=== PATIENT | male | born 1965 | race Caucasian/White ===

== ENCOUNTER 2022-09-29 07:43 | Day surgery (SDC) | payer OTHER ==
[~2022-09-29] VITALS: Ht 165.1 cm; Wt 81.2 kg
[2022-09-29] MEDS ORDERED: DEXT 5%/0.45% NACL 500ML 500 ML IV ONE (08:45)
[2022-09-29] MEDS ORDERED: BUPIVACAINE HCL 300 MG IMPLANT(XARACOLL) IL NR (09:00)
[2022-09-29] MEDS ORDERED: SODIUM CHLORIDE 0.9% 1,000 ML IV SCH (09:00)
[2022-09-29] MEDS ORDERED: BUPIVACAINE HCL/PF 0.5% (5MG/ML) 10ML ONE (09:26)
[2022-09-29] MEDS ORDERED: SKIN ADHESIVE 0.7 GM EA TOP ONE (09:26)
[2022-09-29] MEDS ORDERED: FENTANYL CITRATE/PF 50MCG/ML 2ML VIAL ONE (09:38)
[2022-09-29] MEDS ORDERED: LIDOCAINE HCL 1% 10 MG/ML 10ML VIAL ONE (09:38)
[2022-09-29] MEDS ORDERED: PROPOFOL 200MG/20ML VIAL IV ONE (09:38)
[2022-09-29] MEDS ORDERED: MIDAZOLAM HCL 2 MG/2 ML VIAL ONE (09:39)
[2022-09-29] MEDS ORDERED: SIMV-43 PO (10:49)
[2022-09-29] MEDS ORDERED: METF-416 PO (10:49)
[2022-09-29] MEDS ORDERED: GLIP10TA10 PO (10:49)
[2022-09-29] MEDS ORDERED: INSU100I24 SQ (10:49)
[2022-09-29] MEDS ORDERED: LOSA50TA41 PO (10:49)
[2022-09-29] MEDS ORDERED: HYDROMORPHONE HCL/PF 2MG/ML CPJ IV PRN (11:45)
[2022-09-29] MEDS ORDERED: LABETALOL 5MG/ML SYR 20 MG/4 ML SYRINGE IV PRN (11:45)
[2022-09-29] MEDS ORDERED: ONDANSETRON HCL 4MG/2ML INJ IV PRN (11:45)
[2022-09-29] MEDS ORDERED: MEPERIDINE HCL/PF 25MG/ML CPJ IV PRN (11:45)
[2022-09-29] MEDS ORDERED: INSULIN REGULAR (HUMULIN R) 300UNITS/3ML VIAL SUBCUT NR (14:29)
[2022-09-29] MEDS ORDERED: HYDROCODONE/ACETAMINOPHEN 5/325MG TABLET PO PRN (14:30)
[2022-09-29 14:52] VITALS: BP 125/74
== END 2022-09-29 15:45 | disposition home or self-care (01) ==
LOC: OR 07:43
PROVIDERS: ATTEND Surgery
DX: K40.90 Unilateral inguinal hernia, without obstruction or gangrene, not specified as recurrent (principal); E11.9 Type 2 diabetes mellitus without complications; I10 Essential (primary) hypertension; E78.00 Pure hypercholesterolemia, unspecified; Z79.84 Long term (current) use of oral hypoglycemic drugs; Z79.899 Other long term (current) drug therapy; Z98.890 Other specified postprocedural states; Z20.822 Contact with and (suspected) exposure to COVID-19
CPT/HCPCS: 49505; 82962; 87426; 93005; C1781; C9803; J1815; J2250; J2704; J3010; J3490; C9089